=== PATIENT | male | born 1930 | race Caucasian/White ===

== ENCOUNTER 2016-12-15 11:13 | Emergency (ER) | payer OTHER, MEDICARE ==
[~2016-12-15] VITALS: Ht 170.2 cm; Wt 71.2 kg
--- NOTE | ~2016-12-15 | EKG ---
[address] [place] [place] [address] ELECTROCARDIOGRAM REPORT Name: KAREN MCKEE Room #: [facility]#: [id number] Admission: 12/15/16 Attend Phys: Discharge: 12/15/16 Date of : [birth year] Report #: [id number] THIS REPORT FOR: //name// [facility] ED Test Date: 2016-12-15 Test Time: 11:53:10 Pat Name: KAREN MCKEE Department: Room: Gender: Manager Continuous Improvement: Joya BERRIOS : 1930 Requested By: Rolan Murray Order Number: [id number] MD: Edmar You Measurements Intervals [place] Rate: 71 P: -7 ME: 173 QRS: -19 QRSD: 99 T: 30 QT: 413 QTc: 449 Interpretive Statements Sinus rhythm Abnormal R-wave progression, early transition Compared to ECG 08/16/2013 22:12:25 No significant changes Electronically Signed On 12-16-2016 7:38:25 CDT by Edmar You [email or web address] <ELECTRONICALLY SIGNED> By: Edmar You MD, [facility] 12/16/16 0738 [id number] Edmar You MD, FAC /EPI
[~2016-12-15 11:13] MED LIST: ACETAMINOPHEN325 M1 PO; AMBIEN 5 MG TABL5 M1 OR; ASPIRIN EC81 M1 PO; ATORVASTATIN CA20 MG PO; BYSTOLIC 5 MG5 M1 PO; CARBIDOPA/LEVO1 TA1 PO; CHLORTHALIDONE25 MG PO; CIPRO250 M1 PO; CLOTRIMAZOLE-BE15 GM TP; COLACE100 MG OR; COLACE100 MG PO; COUMADIN 1MG TAB1 M1 OR; DIOVAN160 MG OR; DIOVAN320 MG PO; DOXYCYCLINE 10100 M1 PO; DOXYCYCLINE 10100 MG PO; ENABLEX15 MG PO; ENDOCET 5-3251 EACH PO; FENTANYL PA12 MCG/H1 TOP; FOLIC ACID1 MG OR; FOLIC ACID1 MG PO; HYDROCODONE-AP1 EAC6 PO; HYDROXYZINE HCL10 M1 PO; HYTRIN 5 M5 MG/1 CAP PO; KLOR-CON 1010 MEQ PO; LEVOTHYROXIN0.025 MG PO; LOPRESSOR 50 MG50 M1 PO; MAGNESIUM 300300 MG PO; MAGNESIUM OXID400 MG PO; MINOCYCLINE HC100 M2 PO; MIRALAX17 GM PO; MIRALAX255 GM PO; MOM OR; NEXIUM40 MG PO; NORVASC5 MG PO; PERCOCET 10-321 EACH PO; POTASSIUM20 PO; RAPAFLO8 MG PO; TOPROL XL50 MG PO; TRAMADOL 50 MG50 MG PO; ULTRAM 50MG TAB50 MG PO; VITAMIN B-12500 MCG OR; VITAMIN B-12500 MCG PO
[2016-12-15 11:58] LABS: BASOPHILS 0.9 % (0.0-2.0); EOSINOPHILS 4.4 % (0.0-3.0); HEMATOCRIT 30.1 % (42.0-52.0); HEMOGLOBIN 10.6 gm/dL (14.0-18.0); LYMPHOCYTES 20.5 % (24.0-44.0); MCH 34.1 pg (26.0-34.0); MCHC 35.2 g/dL (28.0-37.0); MONOCYTES 11.7 % (1.0-8.0); PLATELET COUNT 259 thou/uL (150-400); POLYS 62.5 % (36.0-66.0); RDW 13.7 % (10.5-14.5); WBC 4.7 thou/uL (4.0-11.0)
[2016-12-15 11:59] LABS: MANUAL DIFF NO
[2016-12-15] MEDS ORDERED: ASPIR 8181 MG PO (12:03)
[2016-12-15 12:16] LABS: ANION GAP 11 mmol/L (7-16); BUN 26 mg/dL (7-18); CHLORIDE 100 mmol/L (98-107); CO2 24 mmol/L (21-32); CREATININE 1.6 mg/dL (0.7-1.3); GLUCOSE 87 mg/dL (74-106); SODIUM 135 mmol/L (136-145)
[2016-12-15 12:34] LABS: URINE BILIRUBIN NEGATIVE (Negative); URINE BLOOD NEGATIVE (Negative); URINE COLOR YELLOW; URINE GLUCOSE-RANDOM* NEGATIVE (Negative); URINE KETONES NEGATIVE (Negative); URINE LEUKOCYTES-REFLEX NEGATIVE (Negative); URINE PROTEIN (DIPSTICK) TRACE (Negative); URINE UROBILINOGEN 0.2 E.U./dl (0.2-1.0)
[2016-12-15 12:35] LABS: ALBUMIN 3.5 g/dL (3.4-5.0); ALKALINE PHOSPHATASE 82 U/L (46-116); CK-MB MASS 0.6 ng/mL (<0.5-3.6); MAGNESIUM 1.3 mg/dL (1.8-2.4); NT-PRO BRAIN NAT PEPTIDE 586 pg/mL (<300); SGOT 39 U/L (15-37); SGPT 19 U/L (30-65); TOTAL BILIRUBIN 0.5 mg/dL (<0.1-1.0); TROPONIN-I < 0.04 ng/mL (<0.04-0.07)
[2016-12-15] MEDS ORDERED: ANTIVERT25 MG PO (12:42)
[2016-12-15] MEDS ORDERED: MAG-OXIDE400 MG PO (12:58)
== END 2016-12-15 13:09 | disposition home or self-care (01) ==
LOC: ER 11:13
PROVIDERS: Emergency Medicine
DX: I12.9 Hypertensive chronic kidney disease with stage 1 through stage 4 chronic kidney disease, or unspecified chronic kidney disease (principal); N18.9 Chronic kidney disease, unspecified; D64.89 Other specified anemias; E83.42 Hypomagnesemia; Z96.641 Presence of right artificial hip joint; Z98.890 Other specified postprocedural states; F10.99 Alcohol use, unspecified with unspecified alcohol-induced disorder

== ENCOUNTER → 2016-12-16 | Outpatient (CLI) | payer OTHER, MEDICARE ==
[~2016-12-16] MED LIST changes: +ANTIVERT25 MG PO; +ASPIR 8181 MG PO; +MAG-OXIDE400 MG PO
== END ==
LOC: RAD 14:52
DX: M47.894 Other spondylosis, thoracic region (principal); M47.892 Other spondylosis, cervical region; M54.89 Other dorsalgia

== ENCOUNTER → 2017-01-06 | Outpatient (CLI) | payer OTHER, MEDICARE ==
[~2017-01-06] VITALS: Ht 170.2 cm; Wt 67.1 kg
[~2017-01-06] MED LIST changes: +ATORVASTATIN CA40 MG PO; +LEVOTHYROXINE0.05 MG PO; +NORCO 5-325 TA1 EACH PO; +OXYBUTYNIN 5 MG5 M1 PO; +VITAMIN D5000 UNIT PO
--- NOTE | ~2017-01-06 | HPC ---
[facility] [place] [address] PAIN MANAGEMENT CONSULTATION Name: KAREN MCKEE Room #: REG [facility]#: [id number] Admission: 01/06/17 Attend Phys: Rosendo Fong DO Discharge: Date of : [birth year] Report #: [id number] THIS REPORT FOR: //name// CC: Rosendo Thapa MD DATE OF SERVICE: 01/06/2017 REFERRING PHYSICIAN: Nuno Thapa MD CHIEF COMPLAINT: Axial back pain. HISTORY OF PRESENT ILLNESS: As you know, the patient is a very pleasant 86-year-old male who sustained a vertebral compression fracture at L2 in July, he underwent vertebral augmentation without improvement in symptoms. He is continued experiencing pain that has been present since 08/07/2016, after sustaining a fall. Despite this osteoplasty procedure, the patient continues to experience pain that he reports as 6/10. Due to lack of improvement, the patient was subsequently referred to our service after x-ray imaging did show increasing compression fracture at L2. The patient was referred to our clinic by Dr. Nuno Thapa for evaluation. The patient indicates pain today is periodic, it is exacerbated with movement, improves with sitting and lying still, aching and sharp as the descriptors he uses in regards to pain, standing on his feet and movement exacerbates pain, sitting and lying down tends to improve symptoms. He does indicate good efficacy with half hydrocodone to a full hydrocodone up to twice a day. He has received prescription from his primary care physician, which is working well. He has been referred to our service for evaluation. PAST MEDICAL HISTORY: 1. Hypertension. 2. Chronic kidney disease. 3. Vertigo. 4. Hypothyroidism. 5. Dyslipidemia. 6. Gastroesophageal reflux disease. PAST SURGICAL HISTORY: 1. Right total hip arthroplasty in 2011. 2. Herniorrhaphy bilateral in 1993, repeat herniorrhaphy in 1996, left-sided. 3. Vertebral augmentation in July 2016. SOCIAL HISTORY: The patient denies tobacco, IV, or illicit drug use. Admits to one alcoholic beverage per day. 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 He is not receiving workman's compensation nor is he trying to obtain disability benefits. [facility] [address] [place] [address] PAIN MANAGEMENT CONSULTATION Name: MCKEEKAREN Jessica [facility] [id number] Admission: 01/06/17 Attend Phys: Rosendo Fong DO Discharge: Date of : [birth year] Report #: [id number] He is accompanied by his who is present in room today. REVIEW OF SYSTEMS: Positive for decrease in appetite, fatigue and weakness, wearing corrective eyewear, loss of appetite, frequent urination, nocturia, incontinence and dribbling to urine, lightheadedness and dizziness, numbness and tingling sensations, low back pain, difficulty with ambulation secondary to pain. All other review of systems negative per 12-point review of systems other than those listed in history of present illness. PAIN IMPACT SCORE: 34/70 indicating moderate interference of daily activities secondary to pain. ALLERGIES: No known drug allergies. CURRENT MEDICATIONS: Oxybutynin 5 mg once a day, hydrocodone/acetaminophen 5/325 one tab to 2 tabs p.o. every day, vitamin D3 5000 units per day, meclizine 25 mg p.r.n., levothyroxine 50 mcg per day, atorvastatin 40 mg per day, aspirin 81 mg per day, potassium chloride 20 mEq once a day, magnesium oxide 400 mg per day, folic acid 1 mg per day, Bystolic 5 mg per day, docusate sodium 100 mg once a day, cyanocobalamin 1000 mcg once a day, terazosin 5 mg once a day, chlorthalidone 25 mg , and Nexium 40 mg per day. IMAGING: X-ray of the lumbar spine obtained on 12/16/2016, shows compression deformity at L1, which is chronic in nature. There is a compression deformity at L2, which shows increasing compression even after osteoplasty changes at L2. There is degenerative spurring throughout the lumbar spine, degenerative changes noted throughout the lumbar region. PHYSICAL EXAMINATION: VITAL SIGNS: Blood pressure 156/85, pulse 64, respiratory rate 17 and unlabored, the patient is 97% on room air, height 5 feet 7 inches tall, weight 148 pounds, and BMI calculated 23.2. GENERAL: Well-developed, well-nourished, well-hydrated, thin 86-year-old male, appears his stated age, placing current pain score around 6/10. HEENT: Normocephalic, atraumatic. Pupils are equal, round, and reactive to light. Extraocular muscles are intact. Sclerae are nonicteric without injection. NEUROLOGIC: Cranial nerves 2-12 are grossly intact. Speech is fluent. LUNGS: Clear. No wheeze, rhonchi, or rales. CARDIOVASCULAR: Regular. No appreciable gallop or rub. ABDOMEN: Soft, normoactive bowel sounds. EXTREMITIES: Show no clubbing, no cyanosis, and no edema. MUSCULOSKELETAL: There is some palpatory tenderness over the paraspinal musculature of lower lumbar spine, no spinous process tenderness. Seated straight leg raising negative. Supine straight leg raising negative. Angela's test is negative. Modified Gaenslen's positive for axial low back pain. Gait [facility] [address] [place] [address] PAIN MANAGEMENT CONSULTATION Name: KAREN MCKEE Room #: REG [facility].#: [id number] Admission: 01/06/17 Attend Phys: Rosendo Fong DO Discharge: Date of : [birth year] Report #: [id number] is antalgic. Stance is slightly forward flexed to lumbar spine. Muscle bulk and tone equal and symmetrical in lower extremities. Ankle clonus negative. Babinski is negative. ASSESSMENT: 1. L2 compression fracture with continuing compression deformity status post osteoplasty. 2. Chronic low back pain. 3. Chronic intractable pain. PLAN: 1. The patient has been referred to our service after complaining of continuing axial back pain issues. His pain is related to the L2 compression fracture, unfortunately the osteoplasty performed provided no improvement in symptoms. He has trialed conservative medical therapy, recently being started on hydrocodone, but this has been ineffective at alleviating his symptoms entirely. He has been subsequently referred to our clinic to discuss options for treatment. We have seen the patient today, 01/06/2017, his symptoms do correlate to the L2 compression fracture, the fact that we have seen accentuation of the fracture since the July, imaging would indicate that the fracture repair did not provide good stabilization of the bony structure and unfortunately he continues to compress at the L2 level. This is the source of the patient's current symptoms. We discussed with the patient the following options and treatment for chronic L2 compression fracture with continued fracture instability. The patient and I discussed that options for treatment would include physical therapy, stretching exercises, this will improve his myofascial symptoms, but will not change the fracture itself. We discussed TLSO bracing in the form of a Violeta brace, this would stabilize the bony structure placing more of the axial weight onto the posterior structures, which are still intact, removing pressure on the anterior surface of the vertebral body, decreasing compressive forces and improving pain. The patient would have to wear this brace until we can confirm fracture healing, this could be another 6-8 weeks given his age and his lack of healing to date. TLSO bracing would be and the gold standard of treatment and would be quite helpful now as we cannot reenter the vertebral body at L2 and provide any further compression stabilization with kyphoplasty. We also discussed surgical options with the patient including fusion to stabilize the lumbar region. After reviewing risks and benefits of all proposed treatment options, the patient chose to continue with medication therapy and "take it easy." The following was provided to the patient today. 2. The patient was provided a prescription of hydrocodone 5/325 one half tab to one tab every 6 hours p.r.n. for pain, I have given the patient #60 tablets, advised the patient to take the medication only when it is intolerable, not to rely on the medication prophylactically. 3. I have provided the patient with an x-ray imaging request. He is to fulfill this request in 2 weeks, this will give us a 1 month timeframe between recent [address] [address] PAIN MANAGEMENT CONSULTATION Name: KAREN MCKEE Room #: REG [facility]#: [id number] Admission: 01/06/17 Attend Phys: Rosendo Fong DO Discharge: Date of : [birth year] Report #: [id number] x-ray imaging and the new imaging to determine if the compression fracture is continuing, if this is the case, then we need to do something to stabilize this bony structure as he will continue to compress and this will cause greater potential pathology. The patient will undergo this x-ray imaging in 2 weeks and we will review the findings once they are available. 4. The patient was advised that if he does start to notice increasing pain that is more intense than his current symptoms in the lower lumbar spine, he is to contact his primary care physician or our services, we will have him undergo x-ray imaging more rapidly as you are aware a vertebral compression fracture at any level provide a fourfold increase in potential fractures above and below that initial fracture spontaneously, does not require a new fall or injury. We will need to remain vigilant to watch for any changes in his reported pain levels and have him undergo x-ray imaging if necessary to evaluate the L1 vertebral body and the L3 vertebral body specifically. 5. We wish to thank you for the opportunity to see the patient in consultation. He is a very delightful gentleman. I am hopeful that the discussion we had today will help direct his care more effectively. We will see him back in followup visit on an as needed basis. He will undergo the x-ray imaging in 2 weeks and he will contact our clinic to discuss the findings. Again, we wish to thank you for the opportunity to see this gentleman in consultation. By: [id number] [id number] Rosendo Fong DO /massimo
[2017-01-06 10:18] VITALS: BP 156/85
== END ==
LOC: PAIN 06:46
DX: M48.56XA Collapsed vertebra, not elsewhere classified, lumbar region, initial encounter for fracture (principal); I12.9 Hypertensive chronic kidney disease with stage 1 through stage 4 chronic kidney disease, or unspecified chronic kidney disease; N18.9 Chronic kidney disease, unspecified; E03.9 Hypothyroidism, unspecified; E78.5 Hyperlipidemia, unspecified; K21.9 Gastro-esophageal reflux disease without esophagitis; Z96.649 Presence of unspecified artificial hip joint; Z98.890 Other specified postprocedural states

== ENCOUNTER → 2017-01-18 | Outpatient (CLI) | payer OTHER, MEDICARE | LOC: RAD 11:38 | DX: M48.56XA Collapsed vertebra, not elsewhere classified, lumbar region, initial encounter for fracture (principal) ==

== ENCOUNTER → 2017-02-26 | Outpatient (CLI) | payer OTHER, MEDICARE ==
[2017-02-26 13:18] LABS: CREATININE 1.9 mg/dL (0.7-1.3)
== END ==
LOC: LABMALL 11:55
PROVIDERS: Physical Medicine & Rehabilitation Pain Medicine
DX: M48.56XA Collapsed vertebra, not elsewhere classified, lumbar region, initial encounter for fracture (principal)

== ENCOUNTER → 2017-03-25 | Outpatient (CLI) | payer OTHER, MEDICARE | LOC: NUC 03-16 07:49 | DX: M41.84 Other forms of scoliosis, thoracic region (principal); M41.86 Other forms of scoliosis, lumbar region ==

== ENCOUNTER 2018-01-19 16:06 | Emergency (ER) | payer OTHER, MEDICARE ==
[~2018-01-19] VITALS: Ht 167.6 cm; Wt 65.8 kg
--- NOTE | ~2018-01-19 | EKG ---
[place] [address] [facility] [place] [address] ELECTROCARDIOGRAM REPORT Name: KAREN MCKEE Room #: [facility]#: [id number] Admission: 01/19/18 Attend Phys: Discharge: 01/19/18 Date of : [birth year] Report #: [id number] THIS REPORT FOR: //name// [facility] ED Test Date: 2018-01-19 Test Time: 16:34:56 Pat Name: KAREN MCKEE Department: Room: Gender: M [employer]: : 1930 Requested By: Rolan Murray Order Number: [id number] MD: Edmar You Measurements Intervals [place] Rate: 61 P: -20 TN: 201 QRS: -25 QRSD: 98 T: 31 QT: 412 QTc: 415 Interpretive Statements Sinus rhythm Borderline left axis deviation Abnormal R-wave progression, early transition Compared to ECG 12/15/2016 11:53:10 No significant changes Electronically Signed On 01-20-2018 7:54:20 CDT by Edmar You [email or web address] <ELECTRONICALLY SIGNED> By: Edmar You MD, [facility] 01/20/18 0754 [id number] Edmar You MD, [facility] /EPI
[2018-01-19 16:33] LABS: HEMATOCRIT 30.2 % (42.0-52.0); HEMOGLOBIN 10.3 gm/dL (14.0-18.0); MCH 34.4 pg (26.0-34.0); MCHC 34.1 g/dL (28.0-37.0); MCV 101.1 fL (80.0-100.0); PLATELET COUNT 257 thou/uL (150-400); RBC 2.99 mil/uL (4.50-6.00); RDW 16.7 % (10.5-14.5); WBC 4.9 thou/uL (4.0-11.0)
[2018-01-19 16:41] LABS: URINE BILIRUBIN NEGATIVE (Negative); URINE BLOOD NEGATIVE (Negative); URINE CLARITY CLEAR; URINE COLOR YELLOW; URINE GLUCOSE-RANDOM* NEGATIVE (Negative); URINE KETONES NEGATIVE (Negative); URINE LEUKOCYTES-REFLEX NEGATIVE (Negative); URINE NITRITE-REFLEX NEGATIVE (Negative); URINE PROTEIN (DIPSTICK) TRACE (Negative); URINE SPECIFIC GRAVITY 1.015 (1.005-1.035); URINE UROBILINOGEN 0.2 E.U./dl (0.2-1.0)
[2018-01-19 16:41] LABS: ANION GAP 5 mmol/L (7-16); BUN 49 mg/dL (7-18); CALCIUM 10.3 mg/dL (8.5-10.1); CHLORIDE 103 mmol/L (98-107); CO2 26 mmol/L (21-32); CREATININE 1.7 mg/dL (0.7-1.3); GLUCOSE 121 mg/dL (74-106); SODIUM 134 mmol/L (136-145)
[2018-01-19 16:48] LABS: APTT 22.6 Seconds (24.5-32.8)
[2018-01-19 16:50] LABS: MAGNESIUM 1.8 mg/dL (1.8-2.4); SGOT 36 U/L (15-37); SGPT 25 U/L (30-65); TOTAL BILIRUBIN 0.6 mg/dL (<0.1-1.0); TOTAL PROTEIN 7.5 g/dL (6.4-8.2); TROPONIN-I <0.06 ng/mL (<0.06)
[2018-01-19 16:55] LABS: ABSOLUTE NEUTROPHILS 3.3 thou/uL (1.4-8.2); ANISOCYTOSIS 1+
[2018-01-19 16:56] LABS: POIKILOCYTOSIS SLIGHT
[2018-01-19] MEDS ORDERED: TENORMIN25 MG PO (17:02)
[2018-01-19] MEDS ORDERED: CLONIDINE0.1 PO (17:18)
== END 2018-01-19 20:23 | disposition home or self-care (01) ==
LOC: ER 16:06
PROVIDERS: Emergency Medicine
DX: I12.9 Hypertensive chronic kidney disease with stage 1 through stage 4 chronic kidney disease, or unspecified chronic kidney disease (principal); D53.9 Nutritional anemia, unspecified; N18.9 Chronic kidney disease, unspecified; R79.89 Other specified abnormal findings of blood chemistry; R53.1 Weakness; Z96.641 Presence of right artificial hip joint